=== PATIENT | female | born 1995 | race Two or more races ===

== ENCOUNTER 2025-04-16 06:00 | Day surgery (SDC) | payer MEDICAID, SELFPAY ==
[2025-04-12 09:09] LABS: Anion Gap 9 (7-16); BUN/Creatinine Ratio 22 Ratio (12-20); Blood Urea Nitrogen 11 mg/dL (9-23); Calcium 9.0 mg/dL (8.3-10.6); Carbon Dioxide 25.6 mMol/L (20.0-31.0); Chloride 105 mMol/L (98-107); Creatinine (Component) 0.5 mg/dL (0.6-1.3); Estimated Creatinine Clearance 139.9 mL/min (>60); Glucose 95 mg/dL (74-106); Osmolality,Calculated 278 (275-295); Potassium 3.8 mMol/L (3.4-5.1); Sodium 140 mMol/L (136-145); eGFR > 60 See Note
[2025-04-12 09:14] LABS: HCG,Qualitative Serum Negative
[2025-04-12 09:18] LABS: Basophils # (Auto) 0.0 Thou/mm3 (0.0-0.2); Basophils % (Auto) 0 % (0-2.5); Eosinophils # (Auto) 0.4 Thou/mm3 (0.0-0.5); Eosinophils % (Auto) 5 % (0-10); Hematocrit 36.1 % (36.0-46.0); Hemoglobin 11.9 g/dL (12.0-16.0); Immature Granulocytes Auto 0.02 Thou/mm3 (0.00-0.00); Lymphocytes # (Auto) 2.5 Thou/mm3 (1.0-4.8); Lymphocytes % (Auto) 30 % (10-50); Mean Corpuscular HGB Conc 33.0 g/dl (31.0-37.0); Mean Corpuscular Hemoglobin 27.0 pg (25.0-35.0); Mean Corpuscular Volume 82 fL (80-100); Monocytes # (Auto) 0.5 Thou/mm3 (0.0-0.8); Monocytes % (Auto) 6 % (0-12); Neutrophils # (Auto) 4.9 Thou/mm3 (1.8-7.7); Neutrophils % (Auto) 59 % (37-80); Nucleated Red Blood Cell # 0.00 Thou/mm3 (0.00-0.00); Nucleated Red Blood Cell % 0 /100 WBC (0); Platelet Count 382 Thou/mm3 (140-440); RDW Standard Deviation 41.9 fL (36.4-46.3); Red Blood Count 4.41 Miln/mm3 (4.00-5.20); White Blood Count 8.4 Thou/mm3 (3.6-11.0)
[2025-04-16 06:19] VITALS: BP 144/95; PULSE 67; PULSE 68; RESP 20; TEMP 36.9; O2SAT 97; BMI 29.7
--- NOTE | 2025-04-16 07:45 | CHAP ---
Visited briefly with patient and had prayer for upcoming procedure.
--- NOTE | 2025-04-16 08:21 | ESOP_ITS ---
Date of Procedure 04/16/25 Pre Op Diagnosis Residual foreign body in the left upper arm Post Op Diagnosis Residual foreign body in the left upper arm Procedure Removal of residual body from left upper arm Findings An approximately 2 cm tubular structure deep in the masculature of left upper arm Procedure Description Patient brought into the operating room in supine position. After administration of monitored anesthesia care, patient's left upper arm prepped and draped in standard surgical manner. After administration of local anesthes ia an approximately 2-1/2 cm incision was made and dissection was deepened into soft tissue. The residual foreign body was palpated and was deep in the musculature. The foreign body was removed from the surrounding muscle, was approximately 2 cm tubular structure residual foreign body. The wound was washed and irrigated. Soft tissue reapproximated with interrupted sutures using 3-0 Vicryl and the incision was closed with 4-0 Monocryl in subcuticular fashion. Dermabond applied. Patient tolerated procedure well. She was breathing spontaneously without difficulty and was transferred to postanesthesia care in stable condition. Instruments, needles and sponge counts were reported to be correct x 2. Anesthesia MAC and local Pathology / specimen Other (Residual foreign body from left upper arm) Estimated Blood Loss 2 Condition Stable Disposition PACU Surgeon Ruth Stevenson MD Surgical Staff Operation Date: 04/16/25 08:00 <No data on this case meets the specified criteria>
[2025-04-16 08:22] VITALS: BP 138/86; PULSE 71; RESP 18; TEMP 37.1; O2SAT 99
--- NOTE | 2025-04-16 08:22 | SUR.PHASEII ---
0822 Patient arrived to recovery resting comfortably in [facility], on oxygen 2L via oxy mask, breathing unlabored, vital signs stable, denies pain, dressing intact to upper left arm; dermabond, no bleeding noted, report received from Jim GO and Dr. Restrepo
[2025-04-16 08:27] VITALS: BP 154/94; PULSE 75; RESP 18; O2SAT 99
[2025-04-16 08:32] VITALS: BP 141/89; PULSE 70; RESP 17; O2SAT 98
[2025-04-16 08:37] VITALS: BP 135/91; PULSE 66; RESP 17; O2SAT 98
--- NOTE | 2025-04-16 09:02 | SUR.PHASEII ---
0902 Patient meets discharge criteria from recovery, awake and alert, breathing unlabored, vital signs stable, denies pain and nausea, dressing intact; no bleeding noted, drinking water; tolerating well, assisted with dressing into her clothing by her , discharge instructions given with the assistance of the hospital slicer machine operator Ewa to patient and her , signed discharge instructions. Patient given all her belongings prior to discharge, transported via wheelchair and left in a private vehicle.
[2025-04-16 09:52] VITALS: BP 130/86; PULSE 65; RESP 17; TEMP 36.9; O2SAT 97
== END 2025-04-16 09:02 | disposition home or self-care (01) ==
PROVIDERS: PCP Family Medicine; Referring Provider Surgery; Visit Provider Surgery
PROC: (CPT 24201; principal; 2025-04-16 08:00)
DX: M79.5 Residual foreign body in soft tissue (principal)
CPT/HCPCS: 24201; 36415; 80048; 84703; 85025; A4217; A4649; J0690; J2704; J3010; J3490